=== PATIENT | male | born 1995 | race Caucasian/White ===

== ENCOUNTER 2020-07-22 19:44 | Emergency (ER) | payer SELFPAY ==
[2020-07-22 20:47] LABS: RED BLOOD COUNT 5.04 M/UL (4.20-5.50); WHITE BLOOD COUNT 12.1 K/UL (4.5-11.0)
[2020-07-22 21:16] LABS: BUN/CREATININE RATIO 18 (0-10)
== END 2020-07-22 23:09 | disposition home or self-care (01) ==
LOC: ER1 19:44
PROVIDERS: Preventive Medicine Occupational Medicine
DX: E86.0 Dehydration (principal); R50.9 Fever, unspecified; Z20.822 Contact with and (suspected) exposure to COVID-19; Z88.8 Allergy status to other drugs, medicaments and biological substances
CPT/HCPCS: 0240U; 70450; 71045; 80053; 80307; 81001; 85025; 86140; 87086; 93005; 99284; G0480; J7030

== ENCOUNTER 2021-10-19 17:02 | Emergency (ER) | payer OTHER ==
[2021-10-19 17:38] LABS: RED BLOOD COUNT 4.92 M/UL (4.20-5.50); WHITE BLOOD COUNT 6.5 K/UL (4.5-11.0)
[2021-10-19 18:00] LABS: BUN/CREATININE RATIO 20 (0-10)
== END 2021-10-19 21:28 | disposition home or self-care (01) ==
LOC: ER1 17:02
PROVIDERS: Family Medicine; Student in an Organized Health Care Education/Training Program
DX: U07.1 COVID-19 (principal); F15.90 Other stimulant use, unspecified, uncomplicated
CPT/HCPCS: 0240U; 70450; 71045; 80053; 80307; 82550; 82553; 84439; 84443; 84484; 85025; 93005; 99285; G0480